=== PATIENT | male | born 1970 | race Caucasian/White ===

== ENCOUNTER → 2018-10-02 | Outpatient (CLI) | payer BC | LOC: GMAM 11:37 | PROVIDERS: ATTEND Family Medicine | DX: Z12.5 Encounter for screening for malignant neoplasm of prostate (principal) ==

== ENCOUNTER → 2019-09-15 | Outpatient (CLI) | payer BC | LOC: GMAM 10:34 | PROVIDERS: ATTEND Family Medicine | DX: Z00.00 Encounter for general adult medical examination without abnormal findings (principal) ==

== ENCOUNTER 2019-10-03 05:36 | Day surgery (SDC) | payer BC ==
[2019-10-03] MEDS ORDERED: LACTATED RINGERS 1,000 ML ONE (06:22)
[2019-10-03] MEDS ORDERED: PROPOFOL 200 MG/20 ML VIAL IV ONE (07:00)
[2019-10-03] MEDS ORDERED: LIDOCAINE 1% 10 ML VIAL INJ ONE (07:00)
[2019-10-03] MEDS ORDERED: KETAMINE HCL 100 MG/ML VIAL ONE (07:22)
--- NOTE | 2019-10-03 08:18 | OP ---
DATE OF PROCEDURE: 10/03/19 INDICATION: Colonic polyps. PREOPERATIVE DIAGNOSIS: 1. History of colonic polyps. POSTOPERATIVE DIAGNOSIS: 1. History of colonic polyps with no polyps found today. 2. Moderate to severe diverticulosis of the ascending and transverse colon. 3. Colonoscopy complete, but poor visualization of the cecal area. PROCEDURE: 1. Colonoscopy. SURGEON: Guillaume Rai MD TECHNIQUE: The patient was brought to the GI lab and laid in the left lateral decubitus position. Digital rectal exam was performed and found to be normal. The prostate was normal in size. The colonoscope was advanced into the rectum and slowly through to the ascending colon. In the ascending colon, moderate to severe diverticulosis was noted. The scope was advanced very cautiously. Landmarks were somewhat distorted by diverticula and there is some question as to whether we reached the cecum or not. Good visualization of the area we were in was maintained and no polyps were found. The scope was gradually withdrawn through the ascending colon into the transverse colon. There were some scattered diverticula in the transverse colon, no polyps. The scope was withdrawn back into the descending colon. There were no polyps noted in the descending colon. The sigmoid colon as well appeared clear with only occasional diverticula, but no polyps. The scope was withdrawn into the rectum. The scope was retroflexed at that point with visualization of the iliopectineal line and no polyps or lesions were noted in the rectum. The scope was straightened and then withdrawn. The patient tolerated the procedure well. He will be kept in the postoperative area until he is clear from an anesthesia standpoint and then will be discharged home. He will followup with me in one week. We will consider a barium enema or further studies to make sure we adequately visualized his cecum as he did have a polyp in that area on his last scope. We will plan on repeating a colonoscopy on him in 5 years. #[id number] MTDD
[2019-10-03 09:12] VITALS: TEMP 96.9
[2019-10-03 09:15] VITALS: BP 109/74; O2SAT 99
== END 2019-10-03 09:15 | disposition home or self-care (01) ==
LOC: AMB 05:36
PROVIDERS: ATTEND Family Medicine
DX: Z12.11 Encounter for screening for malignant neoplasm of colon (principal); K57.30 Diverticulosis of large intestine without perforation or abscess without bleeding; Z86.010 Personal history of colon polyps; Z80.0 Family history of malignant neoplasm of digestive organs
CPT/HCPCS: 00812; 45378; J3490; J7120